=== PATIENT | male | born 1965 | race Two or more races ===

== ENCOUNTER 2019-03-15 08:50 | Emergency (ER) | payer MEDICAID, OTHER ==
[~2019-03-15] VITALS: Ht 167.6 cm; Wt 73.5 kg
--- NOTE | 2019-03-15 09:06 | NUR ---
patient came in to the ER, +SI,-HI, "i feel like people want's to kill me", "i want to jump off the bridge and kill myself". On room air, breathing evenly and unlabored. kept comfortable, will continue to monitor accordingly. Sitter at bedside.
--- NOTE | 2019-03-15 09:08 | NUR ---
Urine collected and sent to lab.
--- NOTE | 2019-03-15 09:08 | NUR ---
called security to wand the patient for safety measures.
[2019-03-15 09:29] LABS: BASOPHILS # (AUTO) 0.1 /CMM (0.0-0.2); BASOPHILS % (AUTO) 0.9 % (0.0-2.0); EOSINOPHILS % (AUTO) 0.6 % (0.0-6.0); HEMATOCRIT 42 % (39-51); HEMOGLOBIN 14.6 g/dL (13.5-17.5); LYMPHOCYTES # (AUTO) 1.8 /CMM (0.8-4.8); LYMPHOCYTES % (AUTO) 16.3 % (20.0-44.0); MEAN CORPUSCULAR HGB CONC 35 g/dl (31.0-36.0); MEAN CORPUSCULAR VOLUME 93 fL (80-96); MONOCYTES # (AUTO) 1.4 /CMM (0.1-1.30); MONOCYTES % (AUTO) 12.1 % (2.0-12.0); NEUTROPHILS # (AUTO) 7.9 /CMM (1.8-8.9); NEUTROPHILS % (AUTO) 70.1 % (43.0-81.0); PLATELET COUNT (AUTO) 264 /CMM (150-450); RED BLOOD CELL COUNT(AUTO) 4.48 MIL/uL (4.5-6.0); WHITE BLOOD COUNT (AUTO) 11.2 K/uL (4.3-11.0)
[2019-03-15 09:36] LABS: CALCIUM, SERUM 9.5 mg/dL (8.5-10.1); CARBON DIOXIDE 24 mmol/L (21-32); CHLORIDE 101 mmol/L (98-107); CREATININE 0.9 mg/dL (0.6-1.3); GLUCOSE 92 mg/dL (74-106); POTASSIUM 3.3 mmol/L (3.5-5.1); SODIUM SERUM 139 mmol/L (136-145); UREA NITROGEN, BLOOD 19 mg/dL (7-18)
[2019-03-15 09:49] LABS: ALANINE AMINOTRANSFERASE 55 U/L (12-78); ALBUMIN 4.2 g/dL (3.4-5.0); ALCOHOL, BLOOD < 3 mg/dL (0-0); ALKALINE PHOSPHATASE 79 U/L (46-116); ASPARTATE AMINOTRANSFERASE 36 U/L (15-37); BILIRUBIN,DIRECT 0.4 mg/dL (0.0-0.2); BILIRUBIN,TOTAL 1.8 mg/dL (0.2-1.0); TOTAL PROTEIN, SERUM 7.8 g/dL (6.4-8.2)
[2019-03-15 09:55] LABS: ACETAMINOPHEN 0 ug/ml (10-30); SALICYLATE < 0.2 mg/dL (2.8-20.0)
[2019-03-15 11:30] LABS: APPEARANCE,URINE Clear (CLEAR); BILIRUBIN,URINE MODERATE (NEGATIVE); BLOOD, URINE Negative Ery/uL (NEGATIVE); KETONES,URINE 40 (NEGATIVE); LEUKOCYTE ESTERASE ,URINE Negative (NEGATIVE); NITRITE, URINE Negative (NEGATIVE); PH,URINE 5.5 (5.0-8.0); PROTEIN,URINE Trace mg/dl (NEGATIVE); UGLUCOSE 250 MG/DL mg/dL (NEGATIVE)
[2019-03-15 11:31] LABS: COLOR,URINE AMBER (YELLOW)
[2019-03-15 11:32] LABS: BACTERIA,URINE Rare /HPF (None Seen); RBC,URINE 0-2 /HPF (0-2); SQUAMOUS EPITHELIAL CELL,UR Rare /HPF (None Seen); WBC,URINE 0-2 /HPF (0-3)
--- NOTE | 2019-03-15 12:00 | NUR ---
Social Service consult requested by Dr. Carreon for hallucinations and psychiatric evaluation. Pt. is a 53 year old male who came to [facility] complaining of suicidal ideation. Patient states he feels hopeless and thinks people are to get him. He states he had a plan to jump off an overpass, but the police stopped him and brought him to the ER. ALISHA met with pt. bedside. Pt. appears disheveled and dirty. Pt. eyes are bloodshot red. Pt. has tattoos on both his arms. Pt. is alert and oriented x 4. Pt. was sitting upright on the bed. Pt. appeared teary eyed and had a sad affect. Pt. states he is homeless and has been since being released from retirement and most recently [facility]. Pt. is originally from [place] and walked from [place] to [facility]. It took patient a week and a half to get to [place]. 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 Pt. was in [facility] for 7 days for a 10 day flash, meaning he esconded from [place] and moved to [place]. Pt. states he was diagnosed with Depression and Antisocial Disorder. Pt. was prescribed Haldol. Pt. states he has been on a 5150 hold several times and the most recent psychiatric hospitalization was at [facility] a few days ago. Pt. states he is currently having hallucinations of "people chasing me and trying to kill me." Pt. is willing to go voluntary to [facility] . ALISHA to fax clinical packet to [facility] intake department. Pt. does admit to smoking a joint yesterday and states he thinks it was laced with methamphetamine. He states he drinks a beer every now and then but no hard liquor. Pt. receives food stamps and [employer]. Pt. lost all his ID, EBT card and certificate recently. ALISHA faxed clinical packet to [facility] intake dept .
--- NOTE | 2019-03-15 12:18 | NUR ---
Alejandra Social service at bedside and will refer to nathan beckham.
[2019-03-15] MEDS ORDERED: IBUPROFEN 600 MG TABLET PO ONE ×2 (12:29→12:30)
--- NOTE | 2019-03-15 13:51 | NUR ---
ALISHA received a call from Nubia in intake at [facility] informing ALIHSA that pt. has been accepted under Dr. Krishna and for nurse report to be called in to . [facility] to provide transportation to the facility. Addendum: 03/15/19 at 1353 by AMINTA BRITO ALISHA informed Kirby in ED with aforementioned information and requested him to inform DEYSI Canela.
[2019-03-15 15:12] VITALS: BP 135/81
--- NOTE | 2019-03-15 15:13 | NUR ---
Patient Tranfers to outside Facility [facility] [place] voluntary. In no apparent distress noted. Picked up by private ambulance.
== END 2019-03-15 15:13 ==
LOC: ER 08:50
DX: R45.851 Suicidal ideations (principal); F19.10 Other psychoactive substance abuse, uncomplicated; F17.200 Nicotine dependence, unspecified, uncomplicated; Z59.0 Homelessness
CPT/HCPCS: 36415; 76705; 80048; 80076; 80305; 80307; 80329; 81001; 85025; 99285; G0480; 81000-TC